=== PATIENT | male | born 1950 | race Hispanic/Latino ===

== ENCOUNTER 2020-02-22 14:44 | Observation (INO) | payer MEDICARE ==
[~2020-02-22] VITALS: Ht 177.8 cm; Wt 98.4 kg
[2020-02-22] MEDS ORDERED: CEFAZOLIN SODIUM 1 GM VIAL ONE (15:13)
[2020-02-22] MEDS ORDERED: TETANUS/DIPHTHERIA TOXOID [ADULT] 0.5 ML VIAL IM ONE (15:13)
[2020-02-22] MEDS ORDERED: BUPIVACAINE/PF 0.5% 30ML VIAL ONE (15:13)
[2020-02-22 17:00] LABS: BASOPHILS % (AUTO) 0.4 % (0.0-5.0); EOSINOPHILS % (AUTO) 1.6 % (0.0-8.0); HEMATOCRIT 43.7 % (42-54); LYMPHOCYTES % (AUTO) 10.2 % (21.0-51.0); MEAN CORPUSCULAR HEMOGLOBIN 30.6 pg (27.0-33.0); MEAN CORPUSCULAR HGB CONC 32.7 g/dL (32.0-36.0); MEAN CORPUSCULAR VOLUME 93.6 fL (79-99); MONOCYTES % (AUTO) 6.3 % (3.0-13.0); NEUTROPHILS % (AUTO) 81.2 % (40.0-77.0); PLATELET COUNT (AUTO) 240 K/uL (130-400); RED BLOOD CELL COUNT(AUTO) 4.67 MIL/uL (4.50-6.20); RED CELL DISTRIBUTION WIDTH 14.2 % (11.0-15.5)
[2020-02-22 17:14] LABS: POTASSIUM 4.4 mmol/L (3.5-5.1)
[2020-02-22 17:16] LABS: INR 0.95 (0.85-1.15); PARTIAL THROMBOPLASTIN TIME 25.2 SEC (26.3-35.5); PROTHROMBIN TIME 10.3 SEC (9.6-11.6)
[2020-02-22 17:18] LABS: BILIRUBIN,TOTAL 0.4 mg/dL (0.2-1.0); TOTAL PROTEIN, SERUM 7.6 g/dL (6.0-8.3)
[2020-02-22] MEDS ORDERED: MORPHINE SULFATE 4 MG/1ML SYG IVP PRN (17:30)
[2020-02-22] MEDS ORDERED: ONDANSETRON HCL 4 MG/2 ML VIAL IVP PRN (17:30)
[2020-02-22 20:44] VITALS: BP 172/87
[2020-02-23] VITALS (15 sets, daily range): BP systolic 83–181; BP diastolic 40–98
[2020-02-23] MEDS ORDERED: NEOMY SULF/POLYMYXIN B SULFATE 1 ML AMPUL IR ONE (09:33)
[2020-02-23] MEDS ORDERED: LIDOCAINE PF 2% 5ML ABBOJECT ONE (09:40)
[2020-02-23] MEDS ORDERED: PROPOFOL 10 MG/ML 20ML VIAL IV ONE (09:40)
[2020-02-23] MEDS ORDERED: ONDANSETRON HCL 4 MG/2 ML VIAL ONE (09:40)
[2020-02-23] MEDS ORDERED: MIDAZOLAM HCL 1 MG/ML 2ML VIAL ONE (09:40)
[2020-02-23] MEDS ORDERED: DEXAMETHASONE SOD PHOSPHATE 10MG/ML 1ML VIAL ONE (09:40)
[2020-02-23] MEDS ORDERED: FENTANYL CITRATE PF 50 MCG/1 ML 2ML VIAL ONE (09:41)
[2020-02-23] MEDS ORDERED: CEFAZOLIN SODIUM 1 GM VIAL ONE (09:52)
--- NOTE | 2020-02-23 10:17 | NUR ---
Assessment: 0800: Pt resting comfortably during rounding.Awaiting surgery this morning of left thumb ORIF and debridement. Pt reports NPO since 2200 02/22/20 Pt aaox4, airway patent, breathing even and unlabored. NAD. No complaints at this time. Informed pt plan of care 1015: Report given to Emily AGUILERA. Consent form procedure obtained and place in chart. Endorsed pt care to Emily AGUILERA. Pt off of floor to surgery
[2020-02-23] MEDS ORDERED: KETOROLAC TROMETHAMINE 30MG/ML ONE (10:44)
--- NOTE | 2020-02-23 14:44 | NUR ---
DISCHARGE Pt clear for discharge by Dr Boothe. VS wnl. NAD. Left thumb pins in place, open to air. Left radial pulse strong. Cap refill < 3 seconds. Discharge instructions and prescriptions provided. Pt verbalizes understanding of follow up care. AAOX4, No complaints at this time. Pt picked up by .
[2020-02-24] MEDS ORDERED: FENTANYL CITRATE PF 50 MCG/1 ML 2ML VIAL ONE (15:54)
== END 2020-02-23 14:25 | disposition home or self-care (01) ==
LOC: EDH 14:44 → EDHIP 16:40 → 2AH 18:20
PROVIDERS: ADMIT Surgery Plastic and Reconstructive Surgery; ATTEND Surgery Plastic and Reconstructive Surgery
DX: S62.525B Nondisplaced fracture of distal phalanx of left thumb, initial encounter for open fracture (principal); W45.8XXA Other foreign body or object entering through skin, initial encounter; Y93.89 Activity, other specified; Y92.89 Other specified places as the place of occurrence of the external cause; Y99.8 Other external cause status
CPT/HCPCS: 26765; 36415; 73130; 80053; 82948 ×4; 85025; 85610; 85730; 87426; 90471; 90714; 93005; 96374; 99285; A4606; A4930; G0168; G0378 ×9; J0690 ×2; J1100; J1885; J2001; J2250; J2270 ×2; J2405; J2704; J3010; J3490 ×2